=== PATIENT | male | born 1965 | race Two or more races ===

== ENCOUNTER 2024-10-03 15:53 | Emergency (ER) | payer OTHER ==
[~2024-10-03] VITALS: Ht 172.7 cm; Wt 59.0 kg
[2024-10-03] MEDS ORDERED: GLIMEPIRIDE2 MG (16:01)
[2024-10-03] MEDS ORDERED: KETOROLAC TROMETHAMINE 30 MG VIAL IV ONE (17:00)
[2024-10-03] MEDS ORDERED: ONDANSETRON HCL 2 MG/ML VIAL IV ONE (17:00)
[2024-10-03] MEDS ORDERED: 0.9 % SODIUM CHLORIDE 500 ML IV ONE (17:00)
[2024-10-03] MEDS ORDERED: FAMOTIDINE/PF 20 MG/2 ML VIAL IV ONE (17:00)
[2024-10-03] MEDS ORDERED: FAMOTIDINE/PF 20 MG/2 ML VIAL ONE (17:15)
[2024-10-03] MEDS ORDERED: ONDANSETRON HCL 2 MG/ML VIAL ONE (17:15)
[2024-10-03] MEDS ORDERED: KETOROLAC TROMETHAMINE 30 MG VIAL ONE (17:15)
[2024-10-03 18:37] LABS: BASO % 1.6 % (0.1-1.2); EOS # 0.29 (0.04-0.54); EOS % 2.8 % (0.7-7.0); LYMPH # 1.53 (1.18-3.74); LYMPH % 14.7 % (19.3-53.1); MEAN PLATELET VOLUME 9.60 fl (9.4-12.4); MONO # 0.69 (0.24-0.82); MONO % 6.6 % (4.7-12.5); NEUT # 7.68 (1.56-6.13); NEUT % 73.9 % (34.0-71.1); RED CELL DISTRIBUTION WIDTH 13.2 % (11.6-14.4)
[2024-10-03 18:55] LABS: INR 1.0
[2024-10-03 19:00] LABS: ALT/SGPT 24.0 U/L (12-78); AST/SGOT 29.0 U/L (15-37); BILIRUBIN TOTAL 0.44 mg/dL (0.3-1.2); BUN CREA RATIO 16.0 (7.0-25.0); CREATININE SERUM 1.14 mg/dL (0.70-1.30); GFR 65.3; GLOBULINA 3.8 G/DL (2.4-3.5); OSMOLALITY SERUM 292.0 MOSM/KG (275-295)
[2024-10-03 19:05] LABS: GLUCOSE FASTING 316.0 mg/dL (65-100)
== END 2024-10-03 19:53 ==
LOC: ER 15:53
PROVIDERS: General Practice
DX: M25.512 Pain in left shoulder (principal); R10.84 Generalized abdominal pain; Z85.038 Personal history of other malignant neoplasm of large intestine

== ENCOUNTER → 2024-10-08 | Emergency (ER) | payer OTHER ==
[~2024-10-08] VITALS: Ht 172.7 cm; Wt 72.6 kg
[~2024-10-08] MED LIST: 0.9 % SODIUM CHLORIDE 500 ML IV ONE; BENZONATATE200 M1 PO; CEFTRIAXONE SODIUM 1,000 MG VIAL IV ONE; CEFTRIAXONE SODIUM 1,000 MG VIAL ONE; GLIMEPIRIDE2 MG; KETOROLAC TROMETHAMINE 30 MG VIAL IV ONE; KETOROLAC TROMETHAMINE 30 MG VIAL ONE; OSEL75CA PO; OSELTAMIVIR PHOSPHATE 75 MG CAPSULE PO ONE; PROTONIX40 MG PO; ZESTORETIC 10-1 EACH
[2024-10-08 16:51] LABS: BASO % 0.6 % (0.1-1.2); EOS # 0.01 (0.04-0.54); EOS % 0.1 % (0.7-7.0); LYMPH # 1.18 (1.18-3.74); LYMPH % 16.5 % (19.3-53.1); MEAN PLATELET VOLUME 9.70 fl (9.4-12.4); MONO # 0.55 (0.24-0.82); MONO % 7.7 % (4.7-12.5); NEUT # 5.37 (1.56-6.13); NEUT % 74.8 % (34.0-71.1); RED CELL DISTRIBUTION WIDTH 12.9 % (11.6-14.4)
[2024-10-08 17:00] LABS: COVID-19 AG NEGATIVE (NEGATIVE)
[2024-10-08 17:12] LABS: ALT/SGPT 29.0 U/L (12-78); AST/SGOT 75.0 U/L (15-37); BILIRUBIN TOTAL 0.36 mg/dL (0.3-1.2); BUN CREA RATIO 15.0 (7.0-25.0); CREATININE SERUM 1.14 mg/dL (0.70-1.30); GFR 65.3; GLOBULINA 4.1 G/DL (2.4-3.5); GLUCOSE FASTING 160.0 mg/dL (65-100); OSMOLALITY SERUM 273.0 MOSM/KG (275-295)
[2024-10-08 17:44] LABS: URINE APPEARANCE Clear; URINE BILIRRUBIN Negative (NEGATIVE); URINE BLOOD Negative; URINE COLOR Yellow; URINE GLUCOSE Negative (NEGATIVE); URINE LEUKOCYTE Negative; URINE NITRATE Negative; URINE PROTEIN 30 (NEGATIVE); URINE UROBILINOGEN 0.2 E.U./dl
[2024-10-08 17:47] LABS: URINE EPITHELIAL CELLS 3.0 uL (0.0-38.8); URINE RBC 28.3 uL (0.0-20.8)
[2024-10-08 17:53] LABS: URINE BACTERIA 3.5 uL (0.0-1933); URINE CAST 0.43 uL (0.0-1.40); URINE KETONE 40 (NEGATIVE); URINE WBC 1.2 uL (0.0-23.2)
== END | disposition home or self-care (01) ==
LOC: ER 15:26
PROVIDERS: General Practice
DX: J10.1 Influenza due to other identified influenza virus with other respiratory manifestations (principal); Z20.822 Contact with and (suspected) exposure to COVID-19; E11.9 Type 2 diabetes mellitus without complications; Z79.84 Long term (current) use of oral hypoglycemic drugs; I10 Essential (primary) hypertension; Z85.038 Personal history of other malignant neoplasm of large intestine

== ENCOUNTER 2024-11-26 07:00 | Inpatient (IN) | payer OTHER ==
[~2024-11-26] VITALS: Ht 172.7 cm; Wt 58.5 kg
[~2024-11-26 07:00] MED LIST changes: -0.9 % SODIUM CHLORIDE 500 ML IV ONE; -CEFTRIAXONE SODIUM 1,000 MG VIAL IV ONE; -CEFTRIAXONE SODIUM 1,000 MG VIAL ONE; -KETOROLAC TROMETHAMINE 30 MG VIAL IV ONE; -KETOROLAC TROMETHAMINE 30 MG VIAL ONE; -OSELTAMIVIR PHOSPHATE 75 MG CAPSULE PO ONE
[2024-11-26] MEDS ORDERED: 0.9 % SODIUM CHLORIDE 1,000 ML IV ONE (07:45)
[2024-11-26] MEDS ORDERED: ONDANSETRON HCL 2 MG/ML VIAL IV ONE (07:45)
[2024-11-26] MEDS ORDERED: ONDANSETRON HCL 2 MG/ML VIAL ONE ×2 (07:50→15:29)
[2024-11-26 09:03] LABS: BASO % 0.2 % (0.1-1.2); EOS # 0.03 (0.04-0.54); EOS % 0.2 % (0.7-7.0); LYMPH # 0.92 (1.18-3.74); LYMPH % 6.8 % (19.3-53.1); MEAN PLATELET VOLUME 10.30 fl (9.4-12.4); MONO # 0.79 (0.24-0.82); MONO % 5.8 % (4.7-12.5); NEUT # 11.76 (1.56-6.13); NEUT % 86.6 % (34.0-71.1); RED CELL DISTRIBUTION WIDTH 12.8 % (11.6-14.4)
[2024-11-26 09:06] LABS: ALT/SGPT 21.0 U/L (12-78); AST/SGOT 33.0 U/L (15-37); BILIRUBIN TOTAL 0.72 mg/dL (0.3-1.2); BUN CREA RATIO 12.0 (7.0-25.0); CREATININE SERUM 1.18 mg/dL (0.70-1.30); GFR 62.76; GLOBULINA 3.5 G/DL (2.4-3.5); OSMOLALITY SERUM 279.0 MOSM/KG (275-295)
[2024-11-26 09:12] LABS: INR 1.02
[2024-11-26 09:15] LABS: GLUCOSE FASTING 249.0 mg/dL (65-100)
[2024-11-26 12:47] LABS: URINE APPEARANCE Clear; URINE BILIRRUBIN Negative (NEGATIVE); URINE BLOOD Negative; URINE COLOR Yellow; URINE KETONE 15 (NEGATIVE); URINE LEUKOCYTE Trace; URINE NITRATE Negative; URINE PROTEIN Trace (NEGATIVE); URINE UROBILINOGEN 0.2 E.U./dl
[2024-11-26 12:49] LABS: URINE BACTERIA 11.9 uL (0.0-1933); URINE EPITHELIAL CELLS 1.5 uL (0.0-38.8); URINE RBC 4.3 uL (0.0-20.8); URINE WBC 6.0 uL (0.0-23.2)
[2024-11-26 12:56] LABS: URINE CAST 0.00 uL (0.0-1.40); URINE GLUCOSE 250 MG/DL (NEGATIVE)
[2024-11-26] MEDS ORDERED: MORPHINE SULFATE 4 MG/ML CARTRIDGE IV ONE (14:15)
[2024-11-26] MEDS ORDERED: DEXTROSE 50 % IN WATER 0.5 G/ML DISP.SYRIN IV PRN (14:30)
[2024-11-26] MEDS ORDERED: MORPHINE SULFATE 4 MG/ML CARTRIDGE IV PRN (14:30)
[2024-11-26] MEDS ORDERED: ACETAMINOPHEN 325 MG TABLET PO PRN (14:30)
[2024-11-26] MEDS ORDERED: ONDANSETRON HCL 4 MG in 0.9 % SODIUM CHLORIDE 50 ML IV PRN (14:30)
[2024-11-26] MEDS ORDERED: 0.9 % SODIUM CHLORIDE 1,000 ML IV SCH (14:30)
[2024-11-26] MEDS ORDERED: INSULIN LISPRO 1,000 UNIT/10 ML UNITS SUBCUTANEO PRN (14:30)
[2024-11-26 15:59] VITALS: BP 152/82; O2SAT 99
[2024-11-26 18:04] VITALS: BP 148/75; O2SAT 97
[2024-11-26] MEDS ORDERED: DEXTROSE 5 % AND 0.9 % NACL 1,000 ML IV SCH (18:29)
[2024-11-26] MEDS ORDERED: ACETAMINOPHEN 500 MG GEL..CAP PO PRN (18:45)
[2024-11-26] MEDS ORDERED: MORPHINE SULFATE IV SCH (18:45)
[2024-11-26] MEDS ORDERED: SODIUM CHLORIDE 0.9% IV SCH (18:45)
[2024-11-26] MEDS ORDERED: MINERAL OIL 133 ML ENEMA RECTAL ONE (19:00)
[2024-11-26] MEDS ORDERED: PANTOPRAZOLE SODIUM 40 MG/VIAL VIAL IV SCH (21:00)
[2024-11-26] MEDS ORDERED: LACTULOSE 20 G/30 ML BLIST.PACK PO SCH (21:00)
[2024-11-27 01:57] VITALS: BP 155/90; O2SAT 99
[2024-11-27] MEDS ORDERED: MULTIVIT INFUSN,ADULT 4,VIT K 10 ML VIAL IV SCH (09:00)
[2024-11-27] MEDS ORDERED: LISINOPRIL 40 MG TABLET PO SCH (09:00)
[2024-11-27 09:43] VITALS: BP 148/87; O2SAT 96
[2024-11-27] MEDS ORDERED: INSULIN LISPRO 1,000 UNIT/10 ML UNITS SUBCUTANEO PRN (11:15)
[2024-11-27] MEDS ORDERED: DEXTROSE 50 % IN WATER 0.5 G/ML DISP.SYRIN IV PRN (11:15)
[2024-11-27 17:10] VITALS: BP 118/77; O2SAT 97
[2024-11-27] MEDS ORDERED: METOCLOPRAMIDE HCL 10 MG in DEXTROSE 5 % IN WATER 50 ML IV SCH (20:00)
[2024-11-28 01:19] VITALS: BP 130/78; O2SAT 98
[2024-11-28 06:16] LABS: BASO % 0.2 % (0.1-1.2); EOS # 0.06 (0.04-0.54); EOS % 0.4 % (0.7-7.0); LYMPH # 1.15 (1.18-3.74); LYMPH % 6.8 % (19.3-53.1); MEAN PLATELET VOLUME 10.20 fl (9.4-12.4); MONO # 0.52 (0.24-0.82); MONO % 3.1 % (4.7-12.5); NEUT # 15.01 (1.56-6.13); NEUT % 89.1 % (34.0-71.1); RED CELL DISTRIBUTION WIDTH 13.2 % (11.6-14.4)
[2024-11-28 06:43] LABS: ALT/SGPT 16.0 U/L (12-78); AST/SGOT 30.0 U/L (15-37); BILIRUBIN TOTAL 0.52 mg/dL (0.3-1.2); BUN CREA RATIO 6.0 (7.0-25.0); CREATININE SERUM 1.11 mg/dL (0.70-1.30); GFR 67.35; GLOBULINA 3.4 G/DL (2.4-3.5); GLUCOSE FASTING 184.0 mg/dL (65-100); OSMOLALITY SERUM 278.0 MOSM/KG (275-295)
[2024-11-28 08:00] VITALS: BP 121/69; O2SAT 96
[2024-11-28] MEDS ORDERED: VITAMIN B COMPLEX/LYSINE 15 ML BLIST.PACK PO SCH (09:00)
[2024-11-28 18:40] VITALS: BP 123/79
[2024-11-29 02:30] VITALS: BP 122/76; O2SAT 95
[2024-11-29 09:08] VITALS: BP 113/69; O2SAT 94
[2024-11-29 19:34] VITALS: BP 124/81; O2SAT 95
[2024-11-30 00:56] VITALS: BP 123/74; O2SAT 95
[2024-11-30 06:19] LABS: BASO % 0.5 % (0.1-1.2); EOS # 0.01 (0.04-0.54); EOS % 0.0 % (0.7-7.0); LYMPH # 0.95 (1.18-3.74); LYMPH % 4.5 % (19.3-53.1); MEAN PLATELET VOLUME 9.80 fl (9.4-12.4); MONO # 0.81 (0.24-0.82); MONO % 3.9 % (4.7-12.5); NEUT # 18.66 (1.56-6.13); NEUT % 89.4 % (34.0-71.1); RED CELL DISTRIBUTION WIDTH 13.0 % (11.6-14.4)
[2024-11-30 09:20] VITALS: BP 100/56; O2SAT 92
[2024-11-30 10:26] VITALS: BP 106/56
[2024-11-30 18:27] VITALS: BP 122/74; O2SAT 93
[2024-11-30] MEDS ORDERED: MAGNESIUM HYDROXIDE 30 ML BLIST.PACK PO SCH (21:00)
[2024-11-30] MEDS ORDERED: LACTULOSE 20 G/30 ML BLIST.PACK PO SCH (21:00)
[2024-11-30] MEDS ORDERED: PANTOPRAZOLE SODIUM 40 MG TABLET.DR PO SCH (21:00)
[2024-12-01 01:54] VITALS: BP 150/80; O2SAT 95
[2024-12-01 09:15] VITALS: BP 123/57; O2SAT 97
[2024-12-01] MEDS ORDERED: KETOROLAC TROMETHAMINE 60 MG VIAL IM PRN (11:15)
[2024-12-01] MEDS ORDERED: ORPHENADRINE CITRATE 100 MG TABLET PO SCH (17:00)
[2024-12-01 20:34] VITALS: BP 107/67
[2024-12-02 02:37] VITALS: BP 122/63; O2SAT 95
[2024-12-02 08:43] VITALS: BP 122/72; O2SAT 95
[2024-12-02] MEDS ORDERED: KETOROLAC TROMETHAMINE 60 MG VIAL IM PRN (15:30)
[2024-12-02 16:00] VITALS: BP 137/80; O2SAT 95
[2024-12-03 03:29] VITALS: BP 160/85; O2SAT 96
[2024-12-03 06:51] LABS: BASO % 0.0 % (0.1-1.2); EOS # 0.00 (0.04-0.54); EOS % 0.0 % (0.7-7.0); LYMPH # 0.44 (1.18-3.74); LYMPH % 2.2 % (19.3-53.1); MEAN PLATELET VOLUME 9.80 fl (9.4-12.4); MONO # 0.26 (0.24-0.82); MONO % 1.3 % (4.7-12.5); NEUT # 18.69 (1.56-6.13); NEUT % 95.5 % (34.0-71.1); RED CELL DISTRIBUTION WIDTH 13.3 % (11.6-14.4)
[2024-12-03 07:01] LABS: ALT/SGPT 16.0 U/L (12-78); AST/SGOT 47.0 U/L (15-37); BILIRUBIN TOTAL 2.72 mg/dL (0.3-1.2); BUN CREA RATIO 20.0 (7.0-25.0); CREATININE SERUM 0.82 mg/dL (0.70-1.30); GFR 95.51; GLOBULINA 3.1 G/DL (2.4-3.5); GLUCOSE FASTING 202.0 mg/dL (65-100); OSMOLALITY SERUM 275.0 MOSM/KG (275-295)
[2024-12-03 07:34] LABS: BAND MAN 12.0 %; LYMPHOCYTE MAN 1.0 %; NEUTROPHILS MAN 85.0 %
[2024-12-03 08:21] VITALS: BP 128/75; O2SAT 97
[2024-12-03] MEDS ORDERED: LACTULOSE 20 G/30 ML BLIST.PACK PO SCH (09:00)
[2024-12-03 17:01] VITALS: BP 131/79; O2SAT 95
[2024-12-03] MEDS ORDERED: OxyCODONE HCL 5 MG TABLET (ROXICODONE) PO STA (19:41)
[2024-12-03] MEDS ORDERED: AA 4.25%/CAL/LYTES/DEXT 5% 1,000 ML PERIFERAL SCH (20:00)
[2024-12-03] MEDS ORDERED: OxyCODONE HCL ER 10MG TAB (OxyCONTIN) PO SCH (21:00)
[2024-12-04 03:13] VITALS: BP 118/66; O2SAT 96
[2024-12-04] MEDS ORDERED: OxyCODONE HCL 5 MG TABLET (ROXICODONE) PO SCH (05:00)
[2024-12-04 09:41] VITALS: BP 127/79; O2SAT 96
[2024-12-04 16:11] LABS: BUN CREA RATIO 29 (7.0-25.0); CREATININE SERUM 0.77 mg/dL (0.70-1.30); GFR 102.71; VLDL 30 (0-39)
[2024-12-04 16:17] LABS: CHOL HDL RATIO 5.6 (0-5.0); GLUCOSE FASTING 221 mg/dL (65-100); HDL 9 mg/dl (40-60); LDL 11 mg/dl (0-130); OSMOLALITY SERUM 278 MOSM/KG (275-295)
[2024-12-04] MEDS ORDERED: AA 2.36%/D6.8W/FAT/E-LYTES NO9 1,440 ML IV SCH (17:00)
[2024-12-04] MEDS ORDERED: AA 5 %/CALCIUM/LYTES/DEXT 20 % 2,000 ML CENTRAL SCH (17:00)
[2024-12-04 17:46] VITALS: BP 115/70; O2SAT 95
[2024-12-04] MEDS ORDERED: MEROPENEM 500 MG/VIAL VIAL IV SCH (18:00)
[2024-12-04] MEDS ORDERED: GABAPENTIN 300 MG CAPSULE PO SCH (21:00)
[2024-12-04] MEDS ORDERED: VANCOMYCIN HCL 1,000 MG VIAL IV SCH (21:00)
[2024-12-04 21:48] LABS: URINE APPEARANCE Clear; URINE BILIRRUBIN Small (NEGATIVE); URINE BLOOD Small; URINE COLOR Dark Yellow; URINE KETONE 15 (NEGATIVE); URINE LEUKOCYTE Trace; URINE NITRATE Negative; URINE UROBILINOGEN 1.0 E.U./dl
[2024-12-04 21:52] LABS: URINE BACTERIA 7.1 uL (0.0-1933); URINE EPITHELIAL CELLS 4.9 uL (0.0-38.8); URINE RBC 57.3 uL (0.0-20.8); URINE WBC 4.3 uL (0.0-23.2)
[2024-12-04 21:54] LABS: URINE CAST 0.14 uL (0.0-1.40); URINE GLUCOSE 100 MG/DL (NEGATIVE); URINE PROTEIN 100 (NEGATIVE)
[2024-12-04] MEDS ORDERED: fentaNYL CITRATE 50 MCG/ML AMPUL IV PUSH ONE (22:30)
[2024-12-05 01:20] VITALS: BP 97/62; O2SAT 92
[2024-12-05 06:30] LABS: BASO % 1.0 % (0.1-1.2); EOS # 0.02 (0.04-0.54); EOS % 0.2 % (0.7-7.0); LYMPH # 0.30 (1.18-3.74); LYMPH % 3.6 % (19.3-53.1); MEAN PLATELET VOLUME 10.00 fl (9.4-12.4); MONO # 0.31 (0.24-0.82); MONO % 3.7 % (4.7-12.5); NEUT # 7.64 (1.56-6.13); NEUT % 90.8 % (34.0-71.1); RED CELL DISTRIBUTION WIDTH 13.7 % (11.6-14.4)
[2024-12-05 06:39] LABS: ALT/SGPT 21.0 U/L (12-78); AST/SGOT 59.0 U/L (15-37); BILIRUBIN TOTAL 2.05 mg/dL (0.3-1.2); BUN CREA RATIO 30.0 (7.0-25.0); CREATININE SERUM 1.04 mg/dL (0.70-1.30); GFR 72.6; GLOBULINA 3.3 G/DL (2.4-3.5); GLUCOSE FASTING 196.0 mg/dL (65-100); OSMOLALITY SERUM 282.0 MOSM/KG (275-295)
[2024-12-05 07:28] LABS: BAND MAN 8.0 %; LYMPHOCYTE MAN 5.0 %; MONOCYTE MAN 2.0 %; NEUTROPHILS MAN 85.0 %
[2024-12-05 08:44] VITALS: BP 105/70; O2SAT 97
[2024-12-05] MEDS ORDERED: AA 5 %/CALCIUM/LYTES/DEXT 20 % 2,000 ML CENTRAL SCH (17:00)
[2024-12-05 19:16] VITALS: BP 110/65; O2SAT 95
[2024-12-05] MEDS ORDERED: FAT EMULSIONS 250 ML IV SCH (21:00)
[2024-12-05] MEDS ORDERED: INSULIN GLARGINE,HUM.REC.ANLOG 1,000 UNITS/10 ML UNITS SUBCUTANEO SCH (21:00)
[2024-12-05 22:08] VITALS: BP 122/80
[2024-12-06 03:09] VITALS: BP 138/78; O2SAT 95
[2024-12-06 10:05] VITALS: BP 125/76; O2SAT 98
[2024-12-06] MEDS ORDERED: CLINDAMYCIN PHOSPHATE 150 MG/ML (600mg) IV SCH (17:00)
[2024-12-06 18:41] VITALS: BP 133/71; O2SAT 98
[2024-12-06 18:42] VITALS: BP 163/62; O2SAT 98
[2024-12-07 03:38] VITALS: BP 116/63; O2SAT 92
[2024-12-07 06:50] LABS: ALT/SGPT 20.0 U/L (12-78); AST/SGOT 51.0 U/L (15-37); BILIRUBIN TOTAL 1.7 mg/dL (0.3-1.2); BUN CREA RATIO 49.0 (7.0-25.0); CREATININE SERUM 0.93 mg/dL (0.70-1.30); GFR 82.6
[2024-12-07 06:55] LABS: GLOBULINA 3.6 G/DL (2.4-3.5); OSMOLALITY SERUM 296.0 MOSM/KG (275-295)
[2024-12-07 06:56] LABS: GLUCOSE FASTING 392.0 mg/dL (65-100)
[2024-12-07] MEDS ORDERED: INSULIN NPH HUMAN ISOPHANE 1,000 UNITS/10 ML UNITS SUBCUTANEO SCH (09:00)
[2024-12-07 09:24] VITALS: BP 120/76; O2SAT 92
[2024-12-07 15:30] LABS: BASO % 0.0 % (0.1-1.2); EOS # 0.03 (0.04-0.54); EOS % 0.1 % (0.7-7.0); LYMPH # 0.64 (1.18-3.74); LYMPH % 3.2 % (19.3-53.1); MEAN PLATELET VOLUME 14.10 fl (9.4-12.4); MONO # 0.58 (0.24-0.82); MONO % 2.9 % (4.7-12.5); NEUT # 18.18 (1.56-6.13); NEUT % 90.8 % (34.0-71.1); RED CELL DISTRIBUTION WIDTH 14.7 % (11.6-14.4)
[2024-12-07 18:31] VITALS: BP 135/78; O2SAT 95
[2024-12-07] MEDS ORDERED: INSULIN NPH HUMAN ISOPHANE 1,000 UNITS/10 ML UNITS SUBCUTANEO STA (20:26)
[2024-12-07] MEDS ORDERED: INSULIN REGULAR, HUMAN 1,000 UNIT/10 ML UNITS IV ONE (20:30)
[2024-12-07] MEDS ORDERED: INSULIN REGULAR, HUMAN 1,000 UNIT/10 ML UNITS IV STA (23:45)
[2024-12-08 04:00] VITALS: BP 147/77; O2SAT 92
[2024-12-08 07:50] LABS: ALT/SGPT 25.0 U/L (12-78); AST/SGOT 59.0 U/L (15-37); BILIRUBIN TOTAL 1.79 mg/dL (0.3-1.2); BUN CREA RATIO 53.0 (7.0-25.0); CREATININE SERUM 1.15 mg/dL (0.70-1.30); GFR 64.65; GLOBULINA 3.6 G/DL (2.4-3.5)
[2024-12-08 07:51] LABS: BASO % 0.6 % (0.1-1.2); EOS # 0.03 (0.04-0.54); EOS % 0.1 % (0.7-7.0); LYMPH # 0.62 (1.18-3.74); LYMPH % 3.1 % (19.3-53.1); MEAN PLATELET VOLUME 11.80 fl (9.4-12.4); MONO # 0.48 (0.24-0.82); MONO % 2.4 % (4.7-12.5); NEUT # 18.70 (1.56-6.13); NEUT % 92.3 % (34.0-71.1); RED CELL DISTRIBUTION WIDTH 14.6 % (11.6-14.4)
[2024-12-08 09:30] LABS: OSMOLALITY SERUM 303.0 MOSM/KG (275-295)
[2024-12-08 09:31] LABS: GLUCOSE FASTING 485.0 mg/dL (65-100)
[2024-12-08 10:09] VITALS: BP 156/79; O2SAT 98
[2024-12-08 10:30] LABS: BAND MAN 18.0 %; LYMPHOCYTE MAN 1.0 %; MONOCYTE MAN 1.0 %; NEUTROPHILS MAN 77.0 %
[2024-12-08] MEDS ORDERED: KETOROLAC TROMETHAMINE 60 MG VIAL IM PRN (13:15)
[2024-12-08 18:15] VITALS: BP 117/66
[2024-12-08] MEDS ORDERED: POTASSIUM CHLORIDE IN WATER 100 ML IV ONE (18:30)
[2024-12-09] MEDS ORDERED: INSULIN NPH HUMAN ISOPHANE 1,000 UNITS/10 ML UNITS SUBCUTANEO SCH (01:00)
[2024-12-09 02:28] VITALS: BP 113/69; O2SAT 96
[2024-12-09 05:02] LABS: BASO % 0.3 % (0.1-1.2); EOS # 0.02 (0.04-0.54); EOS % 0.1 % (0.7-7.0); LYMPH # 0.68 (1.18-3.74); LYMPH % 3.9 % (19.3-53.1); MEAN PLATELET VOLUME 13.20 fl (9.4-12.4); MONO # 0.20 (0.24-0.82); MONO % 1.1 % (4.7-12.5); NEUT # 16.35 (1.56-6.13); NEUT % 92.8 % (34.0-71.1); RED CELL DISTRIBUTION WIDTH 14.5 % (11.6-14.4)
[2024-12-09 05:36] LABS: BUN CREA RATIO 62.0 (7.0-25.0); CREATININE SERUM 1.29 mg/dL (0.70-1.30); GFR 56.62; GLUCOSE FASTING 84.0 mg/dL (65-100); OSMOLALITY SERUM 295.0 MOSM/KG (275-295)
[2024-12-09 14:25] VITALS: O2SAT 94
[2024-12-09 15:08] VITALS: BP 115/67
[2024-12-09 16:15] VITALS: O2SAT 86
[2024-12-09 18:23] VITALS: BP 129/44; O2SAT 93
[2024-12-09 19:21] VITALS: O2SAT 97
[2024-12-10] VITALS (9 sets, daily range): BP systolic 96–130; BP diastolic 60–70; O2SAT 96–98
[2024-12-10] MEDS ORDERED: MORPHINE SULFATE 2 MG/ML SYRINGE IV SCH (16:00)
[2024-12-10] MEDS ORDERED: KETOROLAC TROMETHAMINE 30 MG VIAL IV PRN (19:45)
[2024-12-11] VITALS (9 sets, daily range): BP systolic 115–140; BP diastolic 71–88; O2SAT 95–98
[2024-12-11] MEDS ORDERED: FAMOTIDINE/PF 20 MG in 0.9 % SODIUM CHLORIDE 8 ML IV PUSH SCH (21:00)
[2024-12-12] VITALS (8 sets, daily range): BP systolic 115–138; BP diastolic 72–79; O2SAT 96–98
[2024-12-12] MEDS ORDERED: MORPHINE SULFATE 4 MG/ML VIAL IV SCH (17:00)
[2024-12-12] MEDS ORDERED: SODIUM CHLORIDE 0.9% IV SCH (19:00)
[2024-12-12] MEDS ORDERED: MORPHINE SULFATE IV SCH (19:00)
[2024-12-13] VITALS (9 sets, daily range): BP systolic 111–126; BP diastolic 74–84; O2SAT 97–99
[2024-12-13] MEDS ORDERED: INSULIN NPH HUMAN ISOPHANE 1,000 UNITS/10 ML UNITS SUBCUTANEO SCH (09:00)
[2024-12-14] VITALS (10 sets, daily range): BP systolic 121–137; BP diastolic 76–89; O2SAT 97–99
[2024-12-15] VITALS (7 sets, daily range): BP systolic 81–112; BP diastolic 34–69; O2SAT 96–100
[2024-12-15] MEDS ORDERED: INSULIN NPH HUMAN ISOPHANE 1,000 UNITS/10 ML UNITS SUBCUTANEO SCH (09:19)
[2024-12-16] VITALS (7 sets, daily range): BP systolic 95; BP diastolic 48; O2SAT 97–99
[2024-12-17] VITALS (8 sets, daily range): BP systolic 57–93; BP diastolic 17–62; O2SAT 90–100
[2024-12-17] MEDS ORDERED: INSULIN NPH HUMAN ISOPHANE 1,000 UNITS/10 ML UNITS SUBCUTANEO SCH (09:00)
[2024-12-18 01:00] VITALS: O2SAT 99
[2024-12-18 04:00] VITALS: O2SAT 100
[2024-12-18] MEDS ORDERED: MORPHINE SULFATE IV SCH (07:00)
[2024-12-18] MEDS ORDERED: SODIUM CHLORIDE 0.9% IV SCH (07:00)
[2024-12-18 08:59] VITALS: O2SAT 98
[2024-12-18 10:03] VITALS: BP 45/13; O2SAT 99
[2024-12-18 12:13] VITALS: O2SAT 98
== END 2024-12-18 15:57 | disposition expired | DRG 374 ==
LOC: ER 07:00 → SEC-K 14:32 → MEDI 14:32 → MEDJ 12-05 16:57
PROVIDERS: General Practice; Internal Medicine; Internal Medicine Infectious Disease; ADMIT Internal Medicine Hematology & Oncology; ATTEND Internal Medicine Hematology & Oncology
PROC: BW21Y0Z Computerized Tomography (CT Scan) of Abdomen and Pelvis using Other Contrast, Unenhanced and Enhanced (ICD-10-PCS; 2024-12-02)
PROC: 0W9J30Z Drainage of Pelvic Cavity with Drainage Device, Percutaneous Approach (ICD-10-PCS; principal; 2024-12-04)
PROC: 02HV33Z Insertion of Infusion Device into Superior Vena Cava, Percutaneous Approach (ICD-10-PCS; 2024-12-04)
PROC: B548ZZA Ultrasonography of Superior Vena Cava, Guidance (ICD-10-PCS; 2024-12-04)
PROC: 8E0ZXY6 Isolation (ICD-10-PCS; 2024-12-05)
PROC: B24BZZZ Ultrasonography of Heart with Aorta (ICD-10-PCS; 2024-12-07)
PROC: 30233N1 Transfusion of Nonautologous Red Blood Cells into Peripheral Vein, Percutaneous Approach (ICD-10-PCS; 2024-12-09)
PROC: 30233R1 Transfusion of Nonautologous Platelets into Peripheral Vein, Percutaneous Approach (ICD-10-PCS; 2024-12-09)
PROC: 4A12X4Z Monitoring of Cardiac Electrical Activity, External Approach (ICD-10-PCS; 2024-12-09)
DX: C20 Malignant neoplasm of rectum (principal); A41.89 Other specified sepsis; C78.7 Secondary malignant neoplasm of liver and intrahepatic bile duct; K61.1 Rectal abscess; D63.0 Anemia in neoplastic disease; L89.152 Pressure ulcer of sacral region, stage 2; Z66 Do not resuscitate; G89.3 Neoplasm related pain (acute) (chronic); R63.4 Abnormal weight loss; F50.89 Other specified eating disorder; I10 Essential (primary) hypertension; M25.552 Pain in left hip; M79.605 Pain in left leg; E11.65 Type 2 diabetes mellitus with hyperglycemia; Z79.4 Long term (current) use of insulin; Z79.84 Long term (current) use of oral hypoglycemic drugs; D69.59 Other secondary thrombocytopenia